=== PATIENT | male | born 1975 | race Caucasian/White ===

== ENCOUNTER → 2022-03-26 14:46 | Outpatient (CLI) | payer OTHER, SELFPAY ==
--- NOTE | 2022-03-26 14:51 | DI.ECHO.S_ITS ---
[facility] +---------+ : : [address] : [place] : : : : [id number] : : : : Phone: [phone]+ Echocardiogram Report + + :Name: ROCIO COBB Study Date: 03/26/2022 Height: 73 in : :[facility] ReadingLocation: Weight: 260 lb : : Gender: Male BSA: 2.4 m2 : :: 1975 Age: 46 yrs BP: 140/86 mmHg: :Reason For Study: VENTRICULAR TACHYCARDIA : :Ordering Physician: Pa TRUONGformed By: Georgiana Marrero : :Referring: CHESTER TRUONG : + + Interpretation Summary The patient was in sinus rhythm with heart rates between 51-78 bpm during the exam. The left ventricle is normal in size and wall thickness. The ejection fraction is estimated to be 60-65%. Diastolic parameters suggest probable normal left ventricular diastolic function and normal filling pressures. The right ventricle is normal in size and function. No significant valvular disease No prior study for comparison. Procedure: A two-dimensional transthoracic echocardiogram with color flow and Doppler was performed. The study quality was technically adequate. There is no prior echocardiogram noted for this patient. The patient was in sinus rhythm with heart rates between 51-78 bpm during the exam. Left Ventricle: The left ventricle is normal in size and wall thickness. The ejection fraction is estimated to be 60-65%. Diastolic parameters suggest probable normal left ventricular diastolic function and normal filling pressures. Right Ventricle: The right ventricle is normal in size and function. Atria: The left atrial size is normal. Right atrial size is normal. There is no Doppler evidence for an interatrial shunt. Mitral Valve: The mitral valve is normal in structure and function. There is trace mitral regurgitation. Aortic Valve: The aortic valve is trileaflet. The aortic valve opens well. There is no aortic valve stenosis. No aortic regurgitation is present. Tricuspid Valve: The tricuspid valve is normal in structure and function. There is trace tricuspid regurgitation. Pulmonic Valve: The pulmonic valve leaflets are thin and pliable; valve motion is normal. There is a trace or physiologic amount of pulmonic regurgitation. Great Vessels: The aortic root is normal size. The dimensions of the ascending aorta are normal. The inferior vena cava was not well visualized. Pericardium/ Pleura There is no pericardial effusion. There is no pleural effusion. MMode/2D Measurements & Calculations LVIDd: 4.4 cm LVOT diam: 2.1 cm LVIDs: 2.8 cm Ao root diam: 3.1 cm FS: 35.8 % asc Aorta Diam: 3.1 cm IVSd: 1.1 cm Ao Arch Diam (Prox Trans): 2.7 cm LVPWd: 0.82 cm LV grubbs. diameter/BSA (cm/m^2): 1.8 LV sys. diameter/BSA (cm/m^2): 1.2 LA A2 area: 23.7 cm2 RA long axis: 5.4 cm LA A4 area: 17.3 cm2 RA area: 15.6 cm2 LA length (vol): 5.7 cm RA vol: 38.6 ml LA vol: 61.2 ml RA : 16.0 ml/m2 LA vol index: 25.5 ml/m2 RVD1 (basal): 3.4 cm RVD2 (mid): 3.2 cm TAPSE: 2.2 cm Doppler Measurements & Calculations Ao V2 max: 136.0 cm/sec LVOT Max Hero: 109.5 cm/sec Ao V2 mean: 92.9 cm/sec LV V1 max P.8 mmHg Ao max P.4 mmHg LV V1 VTI: 20.9 cm Ao mean P.9 mmHg TEENA(I,D): 2.6 cm2 Ao V2 VTI: 26.9 cm TEENA(V,D): 2.7 cm2 sev ratio: 0.78 TEENA indexed to BSA (cm^2/m^2): 1.1 MV E max hero: 82.9 cm/sec PA V2 max: 121.4 cm/sec MV A max hero: 68.0 cm/sec PA V2 mean: 77.9 cm/sec MV E/A: 1.2 PA mean P.8 mmHg Med Peak E' Hero: 7.4 cm/sec PA pr(Accel): 27.6 mmHg E/E' med: 11.2 Lat Peak E' Hero: 10.8 cm/sec E/E' lat: 7.7 E/e' average: 9.4 MV dec time: 0.27 sec SVPADMINI): 69.0 ml Reading Physician:CATRACHO
== END ==
PROVIDERS: Referring Provider Physician Assistant; Visit Provider Physician Assistant
DX: I47.20 Ventricular tachycardia, unspecified (principal)
CPT/HCPCS: 93306